=== PATIENT | female | born 1955 | race Caucasian/White ===

== ENCOUNTER → 2017-05-24 | Outpatient (CLI) | payer BC ==
--- NOTE | 2017-05-24 09:51 | PCVCIMAG ---
APPROVED REPORT Study performed: 05/24/2017 07:45:46 EXAM: Comprehensive 2D, Doppler, and color-flow Echocardiogram Patient Location: Echo lab Status: routine BSA: 1.92 HR: 62 bpmBP: 136/88 mmHg Rhythm: NSR Other Information Study Quality: Adequate Risk Factors: Cardiac Risk Factors: HTN Indications Murmur 2D Dimensions LVEF(%): 61.54 (>50%) IVSd: 9.96 (7-11mm) LVDd: 46.73 mm PWd: 9.80 (7-11mm)Ascending Ao: 37.30 (22-36mm) LVDs: 31.31 (25-40mm) Left Atrium: 38.87 (27-40mm) Aortic Root: 32.29 mm LV Single Plane 4CH: 65.76 % LV Single Plane 2CH: 53.42 %Michael's LVEF: 59.59 % Biplane EF: 60.3 % Volumes Left Atrial Volume (Systole) Single Plane 4CH: 71.24 mLSingle Plane 2CH: 72.93 mL LA ESV Index: 38.00 mL/m2 Aortic Valve AoV Peak Prieto.: 2.23 m/s AO Peak Gr.: 19.88 mmHgLVOT Max P.15 mmHg LVOT Max V: 1.24 m/s Mitral Valve E/A Ratio: 0.8 MV Decel. Time: 289.49 ms MV E Max Prieto.: 0.74 m/s MV A Prieto.: 0.97 m/s IVRT: 96.89 ms Pulmonary Valve PV Peak Prieto.: 1.12 m/sPV Peak Gr.: 5.03 mmHg Pulmonary Vein P Vein S: 0.32 m/sP Vein A: 0.31 m/s P Vein D: 0.41 m/sP Vein A Dur.: 141.9 msec P Vein S/D Ratio: 0.78 Tricuspid Valve TR Peak Prieto.: 2.39 m/s TR Peak Gr.: 22.93 mmHg Left Ventricle The left ventricle is normal size. There is normal LV segmental wall motion. There is normal left ventricular wall thickness. Left ventricular systolic function is normal. The left ventricular ejection fraction is within the normal range. LVEF is 60%. Grade I - abnormal relaxation pattern. Right Ventricle The right ventricle is normal size. The right ventricular systolic function is normal. Atria Left atrium is mildly dilated. The right atrium size is normal. Aortic Valve The aortic valve is normal in structure. No aortic regurgitation is present. There is no aortic valvular stenosis. Mitral Valve The mitral valve is normal in structure. Trace mitral regurgitation. No evidence of mitral valve stenosis. Tricuspid Valve The tricuspid valve is normal in structure. Mild tricuspid regurgitation with PAP of 30 mmHg. Pulmonic Valve The pulmonary valve is normal in structure. Trace pulmonic regurgitation. Great Vessels The aortic root is normal in size. IVC is normal in size and collapses with >50% inspiration Pericardium There is no pericardial effusion. <Conclusion> The left ventricle is normal size. LVEF is 60%. Left atrium is mildly dilated. The aortic valve is normal in structure. The mitral valve is normal in structure. The pulmonary valve is normal in structure. Trace pulmonic regurgitation. There is no pericardial effusion.
== END | disposition home or self-care (01) ==
LOC: PCVCIMAG 07:51
PROVIDERS: ATTEND Internal Medicine
DX: I07.1 Rheumatic tricuspid insufficiency (principal); R01.1 Cardiac murmur, unspecified; I10 Essential (primary) hypertension; R53.83 Other fatigue
CPT/HCPCS: 93306